=== PATIENT | female | born 1975 | race Caucasian/White ===

== ENCOUNTER 2018-08-28 00:40 | Emergency (ER) | payer MEDICAID ==
[2018-08-28 01:23] LABS: URINE PH (Dip) POC 6.5 (5.0-8.5)
[2018-08-28 01:23] LABS: URINE BLOOD (Dip) POC 3+ (NEGATIVE); URINE GLUCOSE (Dip) POC Negative (NEGATIVE); URINE KETONES (Dip) POC Negative (NEGATIVE); URINE LEUKOCYTE EST (Dip) POC Trace (NEGATIVE); URINE NITRITE (Dip) POC Negative (NEGATIVE); URINE TOTAL PROTEIN POC Negative (NEGATIVE)
[2018-08-28] MEDS: ACETAMINOPHEN 500 MG TAB PO (02:03)
[2018-08-28] MEDS: KETOROLAC 60 MG INJ IM (02:05)
== END 2018-08-28 04:13 | disposition home or self-care (01) ==
LOC: FTE 04:13
DX: R82.998 Other abnormal findings in urine (principal)
CPT/HCPCS: 74019; 81003; 81025; 96372; 99284-25